=== PATIENT | male | born 1950 | race Caucasian/White ===

== ENCOUNTER → 2017-10-05 | Day surgery (SDC) | payer MEDICARE ==
[2017-10-04 13:28] VITALS: BMI 25.0
[2017-10-05 13:43] LABS: INR-International Normal Ratio 1.1; Prothrombin Time 14.7 SEC (12.0-14.7)
[2017-10-05 13:58] LABS: ALT (SGPT) 65 U/L (8-55); AST (SGOT) 92 U/L (5-34); Albumin 4.8 g/dL (3.4-4.8); Alkaline Phosphatase 119 U/L (40-150); Anion Gap 12 mmol/L (10-20); BUN (Urea Nitrogen) 7 mg/dL (8.4-25.7); Bilirubin, Total 1.7 mg/dL (0.2-1.2); Calc. Creatinine Clearance 94 mL/min (70-130); Calcium 9.8 mg/dL (7.8-10.44); Carbon Dioxide 30 mmol/L (23-31); Chloride 101 mmol/L (98-107); Estimated GFR-MDRD Greater than 90; Globulin 3.8 g/dL (2.4-3.5); Glucose 101 mg/dL (80-115); Iron 122 ug/dL (65-175); Iron Binding Capacity, Total 380 mcg/dL (261-462); Potassium 4.2 mmol/L (3.5-5.1); Protein, Total 8.6 g/dL (5.8-8.1); Sodium 139 mmol/L (136-145)
--- NOTE | 2017-10-05 14:00 | OP ---
DATE OF PROCEDURE: 10/05/2017 PREOPERATIVE DIAGNOSES: Chronic diarrhea and periumbilical abdominal pain PROCEDURE IN DETAIL: Informed consent was obtained from the patient. He was sedated with total intr avenous anesthesia. The bite block was placed and the endoscope was advanced easily to the second po rtion of the duodenum and retroflexion was performed in the stomach. The esophagus was normal overal l. There were 3 small columns of vertical veins in the distal esophagus; however, these were less th an 5 mm in diameter and flattened completely and were pale and unlikely represent significant esophag eal varices. It is possible that these are very early varices. The GE junction was otherwise normal . The stomach had normal mucosa. Retroflex views in the stomach revealed a small paraesophageal hia rodolfo hernia. The pylorus was normal. The first and second portions of the duodenum were normal. Bio psies were taken from the duodenum to rule out celiac disease. Patient was turned around. Rectal ex am was performed and was normal. The preparation quality was excellent. The colonoscope was advance d without difficulty to the terminal ileum. The mucosa of the terminal ileum was normal. The ileoce umm valve and appendiceal orifice were clearly identified. There is moderate diverticulosis in the l eft colon. A 3 mm polyp was removed from the cecum by cold snare, but not retrieved. A 5 mm polyp w as removed from the transverse colon by cold snare and retrieved for pathology. The remainder of the colonic mucosa was normal. Random biopsies were taken from the right and left colon to rule out loretta roscopic colitis. IMPRESSION: 1. Small paraesophageal hiatal hernia. 2. Otherwise normal esophagogastroduodenoscopy. Duodenal biopsies were taken to rule out celiac dis ease. 3. A 3 mm cecal polyp removed by cold snare and not retrieved. 4. A 5 mm transverse polyp removed by cold snare and retrieved and sent for histopathology. 5. Moderate diverticulosis of left colon. 6. Otherwise, normal colonoscopy. Random biopsies were taken from the right and left colon to rule out microscopic colitis. RECOMMENDATIONS: 1. Await histopathology. 2. Repeat colonoscopy in 5 years. 3. Follow up in GI clinic. 4. Please note that lab work previously drawn indicates possible cirrhosis. His platelets were low with a mildly elevated bilirubin and AST greater than the ALT. He has been drinking a six pack a day since he retired, which he states is much higher than prior to long-term. He does not quantitate h ow much he drank before long-term, but he did drink most days up to some degree. Additional workup for the liver will be performed with ultrasound. Labs including viral hepatitis and autoimmune studi es and alpha 1 antitrypsin and iron saturation will also be sent. Alpha fetoprotein and INR are also being checked. 5. Please note additional evaluation of the diarrhea did include stool studies, which have been nega tive. Gastrin level was normal. Urine 5-HIAA was previously normal. The patient has had some flush ing associated with this diarrhea.
[2017-10-05 14:10] LABS: Ferritin 674.79 ng/mL (22-322)
[2017-10-05 14:22] LABS: HBSAB Concentration 1.72 mIU/mL; HBSAg Index 0.16 S/CO (0-0.99); Hep B Core Total Ab Non-Reactive (NonReactive); Hep B Core Total Index 0.06 S/CO (0-0.79); Hep B Surf AB Non-Reactive (NonReactive); Hep B Surf Ag Non-Reactive S/CO (NonReactive); Hep C IgG Ab Non-Reactive (NonReactive)
[2017-10-06 08:17] LABS: Hepatitis A Total ABS Positive (Negative)
[2017-10-06 20:57] LABS: EliA Vaculitis New Method **** NEW METHOD ****
[2017-10-09 15:21] LABS: Smooth Muscle Total ABS 15 Units (0-19)
== END ==
LOC: SDC 07:38
PROVIDERS: ATTEND Internal Medicine Gastroenterology
PROC: 0DBE8ZX Excision of Large Intestine, Via Natural or Artificial Opening Endoscopic, Diagnostic (ICD-10-PCS; principal; 2017-10-05)
PROC: 0DBH8ZX Excision of Cecum, Via Natural or Artificial Opening Endoscopic, Diagnostic (ICD-10-PCS; 2017-10-05)
PROC: 0DBL8ZX Excision of Transverse Colon, Via Natural or Artificial Opening Endoscopic, Diagnostic (ICD-10-PCS; 2017-10-05)
DX: D12.3 Benign neoplasm of transverse colon (principal); K63.5 Polyp of colon; K57.30 Diverticulosis of large intestine without perforation or abscess without bleeding; K52.9 Noninfective gastroenteritis and colitis, unspecified; K21.9 Gastro-esophageal reflux disease without esophagitis; K44.9 Diaphragmatic hernia without obstruction or gangrene; G47.30 Sleep apnea, unspecified; E78.5 Hyperlipidemia, unspecified; F10.10 Alcohol abuse, uncomplicated; N40.0 Benign prostatic hyperplasia without lower urinary tract symptoms; Z79.82 Long term (current) use of aspirin; Z79.899 Other long term (current) drug therapy; Z88.0 Allergy status to penicillin
CPT/HCPCS: 36415; 80053; 82103; 82105; 82728; 83516; 83540; 83550; 85610; 86704; 86706; 86708; 86803; 87340; 88305

== ENCOUNTER 2017-10-09 07:55 | Outpatient (CLI) | payer MEDICARE | END 2017-10-09 07:56 | disposition home or self-care (01) | LOC: BICULT 07:55 | PROVIDERS: ATTEND Internal Medicine Gastroenterology | DX: R74.8 Abnormal levels of other serum enzymes (principal); K76.6 Portal hypertension; R16.1 Splenomegaly, not elsewhere classified | CPT/HCPCS: 76705 ==

== ENCOUNTER 2020-04-22 08:46 | Outpatient (CLI) | payer MEDICARE ==
--- NOTE | 2020-04-22 09:57 | ULT ---
EXAM: US Hepatic Doppler PROVIDED CLINICAL HISTORY: Cirrhosis COMPARISON: 10/09/2017 FINDINGS: The visualized abdominal aorta and IVC appear normal. The pancreas is largely obscured. The pancreatic duct appears prominent measuring approximately 4 mm. There is a 1.7 cm hypoechoic mass suspected involving the pancreatic head region. There is a peripheral nodular contour to the liver compatible with cirrhosis. There is a 1.9 cm echog enic mass present within the right hepatic lobe, which was not demonstrated on the prior examination. No additional mass or intrahepatic ductal dilatation is evident. The common duct is nondilated. The gallbladder demonstrates no stones. Wall thickening is presumably on the basis of cirrhosis. The spleen is enlarged, measuring about 16.1 cm in craniocaudal dimension. No focal splenic abnormali ty is evident. Color Doppler and spectral analysis of the hepatic arterial, hepatic venous, hepatic portal, splenic arterial and splenic venous waveforms demonstrates normal direction of flow. Free intraperitoneal fluid is demonstrated. IMPRESSION: 1. Findings compatible with cirrhosis accompanied by splenomegaly and ascites. 2. 1.9 cm right hepatic lobe mass, incompletely characterized. Correlation with abdominal MRI is abdiel mmended. 3. Pancreatic head mass, incompletely characterized. This could also be evaluated with abdominal MRI.
== END 2020-04-22 08:47 | disposition home or self-care (01) ==
LOC: BICULT 08:46
PROVIDERS: ATTEND Internal Medicine Gastroenterology
DX: K70.30 Alcoholic cirrhosis of liver without ascites (principal); K92.1 Melena; K76.6 Portal hypertension; K43.9 Ventral hernia without obstruction or gangrene; R16.2 Hepatomegaly with splenomegaly, not elsewhere classified; R18.8 Other ascites; Z86.010 Personal history of colon polyps
CPT/HCPCS: 76705